=== PATIENT | male | born 1975 | race Caucasian/White ===

== ENCOUNTER 2023-09-13 10:04 | Emergency (ER) | payer BC, OTHER ==
--- NOTE | 2023-09-13 10:23 | ED ---
General Adult HPI - General Chief complaint: Altered Mental Status Stated complaint: Mental health Time Seen by Provider: 09/13/23 10:13 Source: patient, RN notes reviewed, old records reviewed Mode of arrival: EMS Limitations: altered mental status, physical limitation - History of Present Illness Initial comments: 48-year-old male presenting evaluation of increased agitation, threatening staff. Patient had apparently made comments "I'm going to kill you". He was sent for mental health evaluation. He had been petitioned by staff for mental health evaluation. Apparently the patient has history of traumatic brain injury. Uncertain of his baseline behavior. Patient had been given Ativan prior to transport. - Related Data Home Medications Medication Instructions Recorded Confirmed Acetaminophen Tab [Tylenol Tab] 1,000 mg PEG/G-TUBE Q6HR PRN 09/13/23 09/13/23 Cholecalciferol [Vitamin D3 (25 25 mcg PEG/G-TUBE DAILY@0800 09/13/23 09/13/23 Mcg = 1000 Iu)] Divalproex Sprinkle [Depakote 125 mg PEG/G-TUBE BID@0800,199909/13/23 09/13/23 Sprinkle] Famotidine [Pepcid] 20 mg PEG/G-TUBE BID@0800,1600 09/13/23 09/13/23 LORazepam [Ativan] 1 mg PEG/G-TUBE Q4H PRN 09/13/23 09/13/23 LORazepam [Ativan] 1 mg PEG/G-TUBE TID@0800,1400,2200 09/13/23 09/13/23 [place] Carbonate 600 mg PEG/G-TUBE BID@0800,1600 09/13/23 09/13/23 Magnesium Oxide [Mag-Oxide] 400 mg PEG/G-TUBE BID@0800,1600 09/13/23 09/13/23 Mirtazapine [Remeron] 15 mg PEG/G-TUBE HS@199909/13/23 09/13/23 Multivitamins, Thera [Multivitamin 1 tab PEG/G-TUBE DAILY@0800 09/13/23 09/13/23 (formulary)] Propranolol HCl [Inderal] 60 mg PEG/G-TUBE TID@0800,1500,2200 09/13/23 09/13/23 Psyllium Husk 100% [Metamucil 6 gm PEG/G-TUBE DAILY@0800 09/13/23 09/13/23 Packet] QUEtiapine FUMARATE [SEROquel] 25 mg PEG/G-TUBE BID@0800,1600 09/13/23 09/13/23 QUEtiapine [SEROquel] 50 mg PEG/G-TUBE HS@199909/13/23 09/13/23 Sevelamer [Renvela] 1,600 mg PEG/G-TUBE 09/13/23 09/13/23 TID@0800,1500,2200 calcitrioL [Rocaltrol] 0.5 mcg PEG/G-TUBE BID@799,199909/13/23 09/13/23 Allergies Allergy/AdvReac Type Severity Reaction Status Date / Time No Known Allergies Allergy Verified 09/13/23 11:54 Review of Systems ROS Statement: Those systems with pertinent positive or pertinent negative responses have been documented in the HPI. ROS Other: All systems not noted in ROS Statement are negative. Past Medical History Additional Past Medical History / Comment(s): traumatic brain injury History of Any Multi-Drug Resistant Organisms: None Reported Additional Past Surgical History / Comment(s): brain injury Past Alcohol Use History: Unable to Obtain General Exam Limitations: altered mental status, physical limitation General appearance: in no apparent distress Head exam: Present: atraumatic, normocephalic Eye exam: Present: normal appearance, PERRL Cardiovascular Exam: Present: regular rate, normal rhythm Skin exam: Present: warm, dry, intact Course Vital Signs 09/13/23 10:13 Temperature 98.9 F Pulse Rate 89 Respiratory 16 Rate Blood Pressure 105/72 O2 Sat by Pulse 96 Oximetry - Reevaluation(s) Reevaluation #1: 09/13/23 10:23 Patient will be observed in the emergency department and when medically cleared and evaluated by EPS. Medical Decision Making - Medical Decision Making Was pt. sent in by a medical professional or institution (, PA, PLANT MAINTENANCE WORKER, urgent care, hospital, or half-way...) When possible be specific @ -[Sent in from half-way. Did you speak to anyone other than the patient for history (EMS, parent, family, police, friend...)? What history was obtained from this source @ -No Did you review nursing and triage notes (agree or disagree)? Why? @ -I reviewed and agree with nursing and triage notes Were old charts reviewed (outside hosp., previous admission, EMS record, old EKG, old radiological studies, urgent care reports/EKG's, half-way records)? Report findings @ -No old charts were reviewed Differential Diagnosis (chest pain, altered mental status, abdominal pain women, abdominal pain men, vaginal bleeding, weakness, fever, dyspnea, syncope, headache, dizziness, GI bleed, back pain, seizure, CVA, palpatations, mental health, musculoskeletal)? @ Increased aggression, homicidal statements EKG interpreted by me (3pts min.). @ -As above X-rays interpreted by me (1pt min.). @ -None done CT interpreted by me (1pt min.). @ -None done U/S interpreted by me (1pt. min.). @ -None done What testing was considered but not performed or refused? (CT, X-rays, U/S, labs)? Why? @ -None What meds were considered but not given or refused? Why? @ -None Did you discuss the management of the patient with other professionals (professionals i.e. , PA, PLANT MAINTENANCE WORKER, lab, RT, psych nurse, social insurance administrator, semiconductor bonder, teacher, recruitment officer, block and case maker)? Give summary @ -[Patient had been evaluated by EPS and felt to be his safe for discharge. I do agree with this assessment. Was smoking cessation discussed for >3mins.? @ -No Was critical care preformed (if so, how long)? @ -No Were there social determinants of health that impacted care today? How? (Homelessness, low income, unemployed, alcoholism, drug addiction, transportation, low edu. Level, literacy, decrease access to med. care, intermediate, rehab)? @ -No Was there de-escalation of care discussed even if they declined (Discuss DNR or withdrawal of care, Hospice)? DNR status @ -No What co-morbidities impacted this encounter? (DM, HTN, Smoking, COPD, CAD, Canc er, CVA, ARF, Chemo, Hep., AIDS, mental health diagnosis, sleep apnea, morbid obesity)? @ Traumatic brain injury Was patient admitted / discharged? Hospital course, mention meds given and route, prescriptions, significant lab abnormalities, going to OR and other pertinent info. @ -[Patient petitioned for mental health evaluation per patient has been calm throughout his entire stay in the emergency department. Not requiring any sedation. He was evaluated by EPS and felt to be safe for discharge. Undiagnosed new problem with uncertain prognosis? @ -No Drug Therapy requiring intensive monitoring for toxicity (Heparin, Nitro, Insulin, Cardizem)? @ -No Were any procedures done? @ -No Diagnosis/symptom? @ -Agitation secondary to med brain injury Acute, or Chronic, or Acute on Chronic? @ -Acute on chronic Uncomplicated (without systemic symptoms) or Complicated (systemic symptoms)? @ -default Side effects of treatment? @ -No Exacerbation, Progression, or Severe Exacerbation? @ -No Poses a threat to life or bodily function? How? (Chest pain, USA, CT, pneumonia, PE, COPD, DKA, ARF, appy, cholecystitis, CVA, Diverticulitis, Homicidal, Suicidal, threat to staff... and all critical care pts) @ Low risk at this time - Lab Data Result diagrams: 09/13/23 12:26 09/13/23 12:26 Lab Results 09/13/23 09/13/23 09/13/23 Range/Units 11:06 12:26 12:26 WBC 5.1 (3.8-10.6) k/uL RBC 4.25 L (4.30-5.90) m/uL Hgb 13.1 (13.0-17.5) gm/dL Hct 39.2 (39.0-53.0) % MCV 92.2 (80.0-100.0) fL MCH 30.9 (25.0-35.0) pg MCHC 33.5 (31.0-37.0) g/dL RDW 13.1 (11.5-15.5) % Plt Count 307 (150-450) k/uL MPV 8.5 Neutrophils % 50 % Lymphocytes % 33 % Monocytes % 11 % Eosinophils % 3 % Basophils % 0 % Neutrophils # 2.5 (1.3-7.7) k/uL Lymphocytes # 1.7 (1.0-4.8) k/uL Monocytes # 0.6 (0-1.0) k/uL Eosinophils # 0.1 (0-0.7) k/uL Basophils # 0.0 (0-0.2) k/uL Sodium 140 (137-145) mmol/L Potassium 4.9 (3.5-5.1) mmol/L Chloride 100 (98-107) mmol/L Carbon Dioxide 26 (22-30) mmol/L Anion Gap 14 mmol/L BUN 16 (9-20) mg/dL Creatinine 0.74 (0.66-1.25) mg/dL Est GFR (CKD-EPI)AfAm >90 (>60 ml/min/1.73 sqM) Est GFR (CKD-EPI)NonAf >90 (>60 ml/min/1.73 sqM) Glucose 84 (74-99) mg/dL Calcium 8.6 (8.4-10.2) mg/dL Total Bilirubin 0.5 (0.2-1.3) mg/dL AST 37 (17-59) U/L ALT 33 (4-49) U/L Alkaline Phosphatase 89 (38-126) U/L Total Protein 8.2 (6.3-8.2) g/dL Albumin 4.6 (3.5-5.0) g/dL Urine Color Light Yellow Urine Appearance Cloudy (Clear) Urine pH 7.5 (5.0-8.0) Ur Specific [place] 1.014 (1.001-1.035) Urine Protein Negative (Negative) Urine Glucose (UA) Negative (Negative) Urine Ketones Negative (Negative) Urine Blood Negative (Negative) Urine Nitrite Negative (Negative) Urine Bilirubin Negative (Negative) Urine Urobilinogen <2.0 (<2.0) mg/dL Ur Leukocyte Esterase Negative (Negative) Urine WBC 2 (0-5) /hpf Ur Squamous Epith Cells <1 (0-4) /hpf Amorphous Sediment Few H (None) /hpf Urine Mucus Rare H (None) /hpf Urine Opiates Screen Not Detected (NotDetected) Ur Oxycodone Screen Not Detected (NotDetected) Urine Methadone Screen Not Detected (NotDetected) Ur Propoxyphene Screen Not Detected (NotDetected) Ur Barbiturates Screen Not Detected (NotDetected) U Tricyclic Antidepress Detected H (NotDetected) Ur Phencyclidine Scrn Not Detected (NotDetected) Ur Amphetamines Screen Not Detected (NotDetected) U Methamphetamines Scrn Not Detected (NotDetected) U Benzodiazepines Scrn Detected H (NotDetected) Urine Cocaine Screen Not Detected (NotDetected) U Marijuana (THC) Screen Not Detected (NotDetected) Serum Alcohol <10 mg/dL Disposition Clinical Impression: Agitation Disposition: HOME SELF-CARE Condition: Fair Is patient prescribed a controlled substance at d/c from ED?: No Referrals: None,Stated [REFERRING] - 1-2 days Time of Disposition: 14:29
[2023-09-13 12:02] LABS: Amorphous Sediment,Urine Few /hpf; Appearance,Urine Cloudy (Clear); Bilirubin,Urine Negative (Negative); Blood,Urine Negative (Negative); Color,Urine Light Yellow; Glucose,Urine (UA) Negative (Negative); Ketones,Urine Negative (Negative); Leukocyte Esterase,Urine Negative (Negative); Mucus,Urine Rare /hpf; Nitrite,Urine Negative (Negative); PH, Urine 7.5 (5.0-8.0); Protein,Urine Negative (Negative); Specific Gravity,Urine 1.014 (1.001-1.035); Squamous Epithelial Cell,Urine <1 /hpf (0-4); Urobilinogen,Urine <2.0 mg/dL (<2.0); WBC,Urine 2 /hpf (0-5)
[2023-09-13 12:18] LABS: Amphetamine Screen,Urine Not Detected (NotDetected); Barbiturate Screen,Urine Not Detected (NotDetected); Benzodiazepines Screen,Urine Detected (NotDetected); Cocaine Screen,Urine Not Detected (NotDetected); Methadone Screen, Urine Not Detected (NotDetected); Opiate Screen,Urine Not Detected (NotDetected); Oxycodone Screen, Urine Not Detected (NotDetected); Phencyclidine Screen,Urine Not Detected (NotDetected); Tricyclic Antidepressant,Urine Detected (NotDetected); Urn Cannabinoid Scrn Not Detected (NotDetected)
[2023-09-13 12:40] LABS: Basophils % (A) 0 %; Eosinophils # (A) 0.1 k/uL (0-0.7); Eosinophils % (A) 3 %; HCT 39.2 % (39.0-53.0); HGB 13.1 gm/dL (13.0-17.5); Lymphocytes # (A) 1.7 k/uL (1.0-4.8); Lymphocytes % (A) 33 %; MCH 30.9 pg (25.0-35.0); MCHC 33.5 g/dL (31.0-37.0); MCV 92.2 fL (80.0-100.0); Mean Platelet Volume 8.5; Monocytes # (A) 0.6 k/uL (0-1.0); Monocytes % (A) 11 %; Neutrophils # (A) 2.5 k/uL (1.3-7.7); Neutrophils % (A) 50 %; Platelet Count 307 k/uL (150-450); RBC 4.25 m/uL (4.30-5.90); RDW 13.1 % (11.5-15.5); WBC 5.1 k/uL (3.8-10.6)
[2023-09-13 13:00] LABS: ALT 33 U/L (4-49); AST 37 U/L (17-59); African American GFR (CKD) >90 (>60 ml/min/1.73 sqM); Albumin 4.6 g/dL (3.5-5.0); Alcohol <10 mg/dL; Alkaline Phosphatase 89 U/L (38-126); Anion Gap 14 mmol/L; Blood Urea Nitrogen 16 mg/dL (9-20); Calcium 8.6 mg/dL (8.4-10.2); Carbon Dioxide 26 mmol/L (22-30); Chloride 100 mmol/L (98-107); Glucose 84 mg/dL (74-99); Non-African American GFR(CKD) >90 (>60 ml/min/1.73 sqM); Potassium 4.9 mmol/L (3.5-5.1); Sodium 140 mmol/L (137-145); Total Bilirubin 0.5 mg/dL (0.2-1.3); Total Protein 8.2 g/dL (6.3-8.2)
[2023-09-13 16:26] VITALS: BP 91/69; PULSE 56; RESP 16; TEMP 97.9
== END 2023-09-13 16:27 | disposition home or self-care (01) ==
LOC: EEVIPCON 10:04 → EC 10:04
DX: R45.1 Restlessness and agitation (principal)
CPT/HCPCS: 36415; 80053; 80306; 80320; 81001; 85025; 99285